=== PATIENT | female | born 1940 | race Caucasian/White ===

== ENCOUNTER 2019-01-29 06:52 | Day surgery (SDC) | payer MEDICARE ==
[~2019-01-29] VITALS: Ht 170.2 cm; Wt 58.6 kg
[2019-01-29] VITALS (17 sets, daily range): BP systolic 133–198; BP diastolic 60–110
[~2019-01-29 06:52] MED LIST: ALEN70TA60 PO; AMLO1TAB14 PO; AMLO5TAB4 PO; CLOP75TA15 PO; LACT1CAP60 PO; MULT-1085 PO; RANI150T8 PO
[2019-01-29] MEDS ORDERED: normal saline 1000ml 1,000 ML IV SCH ×2 (07:15→08:29)
[2019-01-29] MEDS ORDERED: CLOP75TA15 PO (07:48)
[2019-01-29] MEDS ORDERED: OSC500T PO (07:48)
[2019-01-29] MEDS ORDERED: AMLO-331 PO (07:48)
[2019-01-29] MEDS ORDERED: EZET10TA14 PO (07:48)
[2019-01-29] MEDS ORDERED: BIOT5CAP2 PO (07:48)
[2019-01-29] MEDS ORDERED: ANAS1TAB10 PO (07:48)
[2019-01-29 08:06] LABS: ALBUMIN 3.1 G/DL (3.4-5.0); ANION GAP 10 (8-16); BLOOD UREA NITROGEN 16 MG/DL (7-18); BUN/CREATININE RATIO 16.7 (6.6-38.0); CALCIUM 8.9 MG/DL (8.5-10.1); CHLORIDE 102 MMOL/L (99-107); CREATININE 0.96 MG/DL (0.40-0.90); GLUCOSE 96 MG/DL (70-104); POTASSIUM 3.6 MMOL/L (3.5-5.1); SODIUM 135 MMOL/L (135-145); TOTAL CARBON DIOXIDE 22.8 MMOL/L (24-32); eGFR 56 ML/MIN
[2019-01-29 08:20] LABS: BASOPHILS % (AUTO) 0.4 % (0-1); EOSINOPHILS % (AUTO) 0.6 % (0-6); HEMATOCRIT 40.2 % (35.0-45.0); HEMOGLOBIN 13.4 g/dl (12.0-16.0); LYMPHOCYTES # (AUTO) 0.5 X10'3 (1.1-4.8); LYMPHOCYTES % (AUTO) 7.6 % (21-51); MEAN CORPUSCULAR HEMOGLOBIN 26.4 PG (27.0-31.0); MEAN CORPUSCULAR HGB CONC 33.3 g/dL (33.0-36.5); MEAN CORPUSCULAR VOLUME 79.4 FL (78-98); MEAN PLATELET VOLUME 9.6 FL (7.4-10.4); MONOCYTES # (AUTO) 0.6 X10'3 (0-0.9); MONOCYTES % (AUTO) 8.5 % (2-12); NEUTROPHILS % (AUTO) 82.9 % (42-75); PLATELET COUNT 173 X10'3 (140-440); RED BLOOD COUNT 5.07 X10'6 (4.20-5.60); RED CELL DISTRIBUTION WIDTH 13.3 % (11.5-14.5); WHITE BLOOD COUNT 7.3 X10'3 (4.5-11.0)
[2019-01-29] MEDS ORDERED: LIDOcaine 1% (10mg/ml) 2ml vial ONE (08:30)
[2019-01-29] MEDS ORDERED: fentaNYL/PF 50MCG/1 ML 2ML syringe IV PRN (08:45)
[2019-01-29] MEDS ORDERED: midazolam 2 mg/2 ml injection IV PRN (08:45)
[2019-01-29] MEDS ORDERED: LIDOcaine 1%/PF 5ML 10 MG/ML VIAL ONE (09:13)
[2019-01-29] MEDS ORDERED: fentaNYL/PF 50MCG/1 ML 2ML syringe ONE (09:14)
[2019-01-29] MEDS ORDERED: midazolam 2 mg/2 ml injection ONE (09:14)
[2019-01-29] MEDS ORDERED: pneumococcal 23-VAL P-sac vacc 25 mcg/0.5ml vial IMVAC ONE (09:45)
== END 2019-01-29 13:25 | disposition home or self-care (01) ==
LOC: SSTAY O 06:52
PROVIDERS: ATTEND Radiology Diagnostic Radiology
DX: R16.0 Hepatomegaly, not elsewhere classified (principal); C50.411 Malignant neoplasm of upper-outer quadrant of right female breast; I10 Essential (primary) hypertension; E78.5 Hyperlipidemia, unspecified; Z87.891 Personal history of nicotine dependence; M85.80 Other specified disorders of bone density and structure, unspecified site; Z98.890 Other specified postprocedural states; Z98.42 Cataract extraction status, left eye; Z98.41 Cataract extraction status, right eye; Z96.1 Presence of intraocular lens; Z79.899 Other long term (current) drug therapy; Z88.6 Allergy status to analgesic agent; Z88.8 Allergy status to other drugs, medicaments and biological substances
CPT/HCPCS: 36415; 47000; 77012; 80048; 85025; 88341; 88342; 99152; 99153; J2001; J2250; J3010; J3490; J7030; 88307; 88360

== ENCOUNTER → 2020-08-18 | Day surgery (SDC) | payer MEDICARE ==
[~2020-08-18] VITALS: Ht 170.2 cm; Wt 60.3 kg
[~2020-08-18] MED LIST changes: +ACET325T55 PO; -ALEN70TA60 PO; +AMLO-380 PO; -AMLO1TAB14 PO; -AMLO5TAB4 PO; +ANAS1TAB10 PO; +BIOT5CAP2 PO; +EZET10TA6 PO; +FAMO-156 PO; +LOPE-190; +MIRT15TA PO; +ONDA4TAB12 PO; +OSC500T PO; +OXYC5CAP19 PO; +PANT-47 PO; +PROC10TA10 PO; +albumin 25% 100mL bottle x 1 IV PRN
[2020-08-18 07:12] VITALS: BP 170/82
[2020-08-18 09:45] VITALS: BP 142/74
[2020-08-18 10:30] LABS: GLUCOSE,BODY FLUID 97 MG/DL; LDH,BODY FLUID 51 U/L
[2020-08-18 10:47] LABS: TOTAL PROTEIN,BODY FLUID < 2.0 G/DL
[2020-08-18 10:56] LABS: LYMPHOCYTES,BODY FLUID 64 %; MONOCYTES,BODY FLUID 22 %; NEUTROPHILS,BODY FLUID 14 %
[2020-08-18 10:57] LABS: BF RBC COUNT 900 /CU MM; BF WBC COUNT 200 /CU MM (0-1000); BFAPPEAR CLEAR; BFCOLOR YELLOW; BFVOLUME 60 ML
[2020-08-18 10:58] LABS: BF MESOTHELIAL CELLS FEW
== END | disposition home or self-care (01) ==
LOC: SSTAY O 06:35
PROVIDERS: ATTEND Radiology Vascular & Interventional Radiology
DX: R18.8 Other ascites (principal); K21.9 Gastro-esophageal reflux disease without esophagitis; G89.29 Other chronic pain; F41.9 Anxiety disorder, unspecified; I10 Essential (primary) hypertension; M85.80 Other specified disorders of bone density and structure, unspecified site; Z85.3 Personal history of malignant neoplasm of breast; Z98.890 Other specified postprocedural states; Z87.891 Personal history of nicotine dependence; Z88.8 Allergy status to other drugs, medicaments and biological substances; Z79.01 Long term (current) use of anticoagulants; Z79.899 Other long term (current) drug therapy; Z85.09 Personal history of malignant neoplasm of other digestive organs
CPT/HCPCS: 49083; 82945; 83615; 84157; 87070; 89051

== ENCOUNTER 2020-09-29 06:27 | Day surgery (SDC) | payer MEDICARE ==
[~2020-09-29] VITALS: Ht 170.2 cm; Wt 19.7 kg
[~2020-09-29 06:27] MED LIST changes: -AMLO-380 PO; -LACT1CAP60 PO; +MIRT-116 PO; -MIRT15TA PO; -RANI150T8 PO; -albumin 25% 100mL bottle x 1 IV PRN
[2020-09-29] MEDS ORDERED: albumin 25% 100mL bottle x 1 IV PRN (06:50)
[2020-09-29] MEDS ORDERED: normal saline 1000ml 1,000 ML IV PRN (06:50)
[2020-09-29] MEDS ORDERED: FLU VACC QS2020-21(6MOS UP)/PF 60 MCG/0.5 ML SYRINGE IMVAC ONE (07:30)
[2020-09-29 07:32] VITALS: BP 161/71
[2020-09-29 08:35] VITALS: BP 130/61
[2020-09-29 08:55] VITALS: BP 135/67
[2020-09-29 09:20] VITALS: BP 138/69
[2020-09-29 09:35] LABS: LDH,BODY FLUID 52 U/L
[2020-09-29 09:54] LABS: TOTAL PROTEIN,BODY FLUID < 2.0 G/DL
== END 2020-09-29 09:50 | disposition home or self-care (01) ==
LOC: SSTAY O 06:27
PROVIDERS: ATTEND Radiology Vascular & Interventional Radiology
DX: R18.8 Other ascites (principal); K21.9 Gastro-esophageal reflux disease without esophagitis; F41.9 Anxiety disorder, unspecified; G89.29 Other chronic pain; I10 Essential (primary) hypertension; M85.80 Other specified disorders of bone density and structure, unspecified site; Z23 Encounter for immunization; Z85.3 Personal history of malignant neoplasm of breast; Z88.8 Allergy status to other drugs, medicaments and biological substances; Z79.899 Other long term (current) drug therapy; Z79.01 Long term (current) use of anticoagulants; Z98.890 Other specified postprocedural states; Z87.891 Personal history of nicotine dependence; Z85.09 Personal history of malignant neoplasm of other digestive organs; Z80.0 Family history of malignant neoplasm of digestive organs; Z82.49 Family history of ischemic heart disease and other diseases of the circulatory system
CPT/HCPCS: 49083; 83615; 84157; G0008; Q2039

== ENCOUNTER 2020-11-03 07:28 | Day surgery (SDC) | payer MEDICARE ==
[~2020-11-03] VITALS: Ht 170.2 cm; Wt 62.5 kg
[2020-11-03] MEDS ORDERED: albumin 25% 100mL bottle x 1 IV PRN (08:05)
[2020-11-03 08:09] VITALS: BP 154/69
[2020-11-03 09:25] VITALS: BP 129/63
[2020-11-03 09:40] VITALS: BP 121/60
[2020-11-03 10:00] VITALS: BP 138/70
[2020-11-03 10:20] VITALS: BP 128/63
== END 2020-11-03 10:20 | disposition home or self-care (01) ==
LOC: SSTAY O 07:28
PROVIDERS: ATTEND Radiology Vascular & Interventional Radiology
DX: R18.8 Other ascites (principal); K21.9 Gastro-esophageal reflux disease without esophagitis; F41.9 Anxiety disorder, unspecified; G89.29 Other chronic pain; Z85.3 Personal history of malignant neoplasm of breast; I10 Essential (primary) hypertension; M85.80 Other specified disorders of bone density and structure, unspecified site; Z85.09 Personal history of malignant neoplasm of other digestive organs; Z88.8 Allergy status to other drugs, medicaments and biological substances; Z79.899 Other long term (current) drug therapy; Z98.890 Other specified postprocedural states
CPT/HCPCS: 49083

== ENCOUNTER 2020-12-02 06:51 | Day surgery (SDC) | payer MEDICARE ==
[~2020-12-02] VITALS: Ht 170.2 cm; Wt 63.0 kg
[2020-12-02] VITALS (11 sets, daily range): BP systolic 119–133; BP diastolic 50–63
[2020-12-02] MEDS ORDERED: albumin 25% 100mL bottle x 1 IV PRN (07:30)
== END 2020-12-02 10:48 | disposition home or self-care (01) ==
LOC: SSTAY O 06:51
PROVIDERS: ATTEND Radiology Vascular & Interventional Radiology
DX: R18.8 Other ascites (principal); K21.9 Gastro-esophageal reflux disease without esophagitis; F41.9 Anxiety disorder, unspecified; G89.29 Other chronic pain; I10 Essential (primary) hypertension; Z85.3 Personal history of malignant neoplasm of breast; Z85.09 Personal history of malignant neoplasm of other digestive organs; M85.88 Other specified disorders of bone density and structure, other site; Z98.890 Other specified postprocedural states; Z87.891 Personal history of nicotine dependence; Z88.8 Allergy status to other drugs, medicaments and biological substances
CPT/HCPCS: 49083